=== PATIENT | male | born 1960 | race Caucasian/White ===

== ENCOUNTER 2020-10-21 12:51 | Inpatient (IN) | payer OTHER ==
[~2020-10-21] VITALS: Ht 167.6 cm; Wt 49.4 kg
[2020-10-21] MEDS ORDERED: LORAZEPAM 2MG/ML CPJ IV ONE ×2 (13:15)
[2020-10-21] MEDS ORDERED: VANCOMYCIN 1 G PREMIX 200 ML IV ONE (13:15)
[2020-10-21] MEDS ORDERED: SODIUM CHLORIDE 0.9% 1000ML BAG (SEPSIS BOLUS) IV ONE (13:15)
[2020-10-21] MEDS ORDERED: PIPERACILLIN/TAZ 3.375G PREMIX 50 ML IV ONE (13:15)
[2020-10-21] MEDS ORDERED: LEVOFLOXACIN 750MG PREMIX 150 ML IV ONE (13:15)
[2020-10-21 14:02] LABS: BASOPHILS % 0.2 % (0.0-2.0); HEMATOCRIT. 45.9 % (42.0-52.0); HEMOGLOBIN. 14.9 g/dL (14.0-18.0); LYMPHOCYTES % 10.6 % (20.0-50.0); MEAN CORPUSCULAR HEMOGLOBIN 30.2 pg (28.0-32.0); MONOCYTES % 8.2 % (2.0-8.0); PLATELET 378 x1000/uL (130-400); RED BLOOD CELL COUNT 4.94 mill/uL (4.7-6.1); RED CELL DISTRIBUTION WIDTH 14.6 % (11.6-14.6)
[2020-10-21 14:07] LABS: CHLORIDE 107 mEq/L (98-107)
[2020-10-21 14:14] LABS: ETHANOL BLOOD 21 mg/dL
[2020-10-21] MEDS ORDERED: SODIUM CHLORIDE 0.9% 1,000 ML IV ONE (14:45)
[2020-10-21 15:13] LABS: *AMPHETAMINES SCREEN URINE NEGATIVE (NEGATIVE); *BARBITURATES SCREEN URINE NEGATIVE (NEGATIVE); CANNABINOID URINE SCREEN NEGATIVE (NEGATIVE); METHADONE URINE SCREEN NEGATIVE (NEGATIVE); OPIATES URINE SCREEN NEGATIVE (NEGATIVE); PHENCYCLIDINE URINE SCREEN NEGATIVE (NEGATIVE)
[2020-10-21 15:14] LABS: *BENZODIAZEPINES SCREEN URINE NEGATIVE (NEGATIVE); *COCAINE SCREEN URINE NEGATIVE (NEGATIVE)
[2020-10-21] MEDS ORDERED: MAGNESIUM/ALUMINUM HYDROXIDE/SIMETHICONE 30ML UDC PO PRN (16:00)
[2020-10-21] MEDS ORDERED: POTASSIUM CHLORIDE 20MEQ TABLET SR PO NR (16:00)
[2020-10-21] MEDS ORDERED: ALBUTEROL 6.7GM HFA INHALER ORI PRN (16:00)
[2020-10-21] MEDS ORDERED: NITROGLYCERIN 0.4MG TABLET SL SL PRN (16:00)
[2020-10-21] MEDS ORDERED: NA PHOS,M-B/NA PHOS,DI-BA ENEMA 118ML PR PRN (16:00)
[2020-10-21] MEDS ORDERED: ONDANSETRON HCL 4MG/2ML INJ IV PRN (16:00)
[2020-10-21] MEDS ORDERED: DOCUSATE SODIUM 100MG CAPSULE PO PRN (16:00)
[2020-10-21] MEDS ORDERED: ACETAMINOPHEN 325MG TABLET PO PRN ×2 (16:00)
[2020-10-21] MEDS ORDERED: GUAIFENESIN 200MG/10ML SUGAR FREE UDC PO PRN (16:00)
[2020-10-21] MEDS ORDERED: MVI, ADULT NO.1 10 ML, FOLIC ACID 1 MG, THIAMINE HCL 100 MG in SODIUM CHLORIDE 0.9% 1,0... IV SCH ×4 (17:00)
[2020-10-21] MEDS ORDERED: AZITHROMYCIN 500 MG in DEXT 5% WATER 250 ML IV SCH (17:00)
[2020-10-21] MEDS ORDERED: KCL 20MEQ/100ML PREMIX 100 ML IV SCH (17:00)
[2020-10-21] MEDS ORDERED: ENOXAPARIN 40MG/0.4ML SYR SUBCUT SCH (17:00)
[2020-10-21 17:04] LABS: D-DIMER 0.48 mg/L FEU (<0.50); INR 1.1; PROTHROMBIN TIME 11.8 sec (9.6-11.0)
[2020-10-21] MEDS ORDERED: KCL 10MEQ/50ML PREMIX 50 ML IV ONE (17:15)
[2020-10-21] MEDS ORDERED: CEFTRIAXONE 1 G PREMIX 50 ML IV SCH (18:00)
[2020-10-21] MEDS: FAMOTIDINE 20MG TABLET PO SCH (18:11)
[2020-10-21 19:34] LABS: VITAMIN B12 SERUM 478 pg/mL (211-911)
[2020-10-21] MEDS ORDERED: ALBUTEROL 6.7GM HFA INHALER ORI SCH (21:00)
[2020-10-21] MEDS: GUAIFENESIN/DM 600MG/30MG ER TAB 12HR PO SCH (21:47)
[2020-10-21] MEDS: ASCORBIC ACID 500 MG TABLET PO SCH (21:47)
[2020-10-22 03:54] LABS: FOLIC ACID (FOLATE) SERUM > 20.00 ng/mL (>5.38)
[2020-10-22 05:17] LABS: BASOPHILS % 1.2 % (0.0-2.0); EOSINOPHILS % 0.4 % (0.0-5.0); HEMATOCRIT. 36.5 % (42.0-52.0); HEMOGLOBIN. 12.3 g/dL (14.0-18.0); LYMPHOCYTES % 21.4 % (20.0-50.0); MEAN CORPUSCULAR HEMOGLOBIN 30.8 pg (28.0-32.0); MEAN CORPUSCULAR VOLUME 91.6 fL (80.0-94.0); MEAN PLATELET VOLUME 8.1 fl (7.4-10.4); MONOCYTES % 8.5 % (2.0-8.0); NEUTROPHILS % 68.5 % (40.0-76.0); PLATELET 215 x1000/uL (130-400); RED BLOOD CELL COUNT 3.99 mill/uL (4.7-6.1); RED CELL DISTRIBUTION WIDTH 13.9 % (11.6-14.6)
[2020-10-22 05:27] LABS: CHLORIDE 112 mEq/L (98-107)
[2020-10-22 05:35] LABS: PHOSPHORUS 1.8 mg/dL (2.5-4.9)
[2020-10-22 05:37] LABS: CREATINE KINASE 155 IU/L (39-308)
[2020-10-22 05:44] LABS: CREATINE KINASE MB FRACTION 7.3 ng/mL (0.5-3.6)
[2020-10-22] MEDS: CHOLECALCIFEROL (D3) 1000 UNIT TABLET PO SCH (09:00)
[2020-10-22] MEDS: ASCORBIC ACID 500 MG TABLET PO SCH ×2 (09:00→22:57)
[2020-10-22] MEDS: FAMOTIDINE 20MG TABLET PO SCH (09:00)
[2020-10-22] MEDS: GUAIFENESIN/DM 600MG/30MG ER TAB 12HR PO SCH ×2 (09:00→22:57)
[2020-10-22] MEDS: ZINC SULFATE 220 MG ( 50 ) CAPSULE PO SCH (09:00)
[2020-10-22] MEDS: CLONIDINE 0.1MG TABLET PO PRN (10:03)
[2020-10-22] MEDS: CEFTRIAXONE 1,000 MG in DEXTROSE 5% WATER 50 ML IV SCH (10:33)
[2020-10-22 11:15] VITALS: BP 151/89
[2020-10-22] MEDS ORDERED: DILT180T11 MT (11:40)
[2020-10-22] MEDS ORDERED: LANS15CA12 MT (11:40)
[2020-10-22] MEDS ORDERED: TAMS-11 MT (11:40)
[2020-10-22 12:15] VITALS: BP 151/89
[2020-10-22 16:00] VITALS: BP 156/86
[2020-10-22] MEDS: ENOXAPARIN 30MG/0.3ML SYR SUBCUT SCH (16:18)
[2020-10-22] MEDS ORDERED: AZITHROMYCIN 500 MG in DEXT 5% WATER 250 ML IV SCH (17:00)
[2020-10-22 20:00] VITALS: BP 198/106
[2020-10-22] MEDS: ZOLPIDEM TARTRATE 5MG TABLET PO PRN (23:02)
[2020-10-23] VITALS: BP 168/98
[2020-10-23 04:00] VITALS: BP 174/94
[2020-10-23 08:00] VITALS: BP 140/93
[2020-10-23] MEDS: CLOPIDOGREL 75MG TABLET PO SCH (09:49)
[2020-10-23] MEDS: CEFTRIAXONE 1,000 MG in DEXTROSE 5% WATER 50 ML IV SCH (09:49)
[2020-10-23] MEDS: CHOLECALCIFEROL (D3) 1000 UNIT TABLET PO SCH (09:50)
[2020-10-23] MEDS: ASCORBIC ACID 500 MG TABLET PO SCH ×2 (09:51→20:37)
[2020-10-23] MEDS: FAMOTIDINE 20MG TABLET PO SCH (09:51)
[2020-10-23] MEDS: AMLODIPINE 10MG TABLET PO SCH (09:51)
[2020-10-23] MEDS: ZINC SULFATE 220 MG ( 50 ) CAPSULE PO SCH (09:51)
[2020-10-23] MEDS ORDERED: POTASSIUM PHOS,M-BASIC-D-BASIC 20 MMOL in DEXT 5% WATER 243.3333 ML IV SCH (10:00)
[2020-10-23] MEDS: GUAIFENESIN/DM 600MG/30MG ER TAB 12HR PO SCH ×2 (10:04→20:37)
[2020-10-23 12:00] VITALS: BP 149/93
[2020-10-23 16:00] VITALS: BP 144/92
[2020-10-23] MEDS: ENOXAPARIN 30MG/0.3ML SYR SUBCUT SCH (16:47)
[2020-10-23] MEDS ORDERED: AZITHROMYCIN 500 MG TABLET PO SCH (17:00)
[2020-10-23 20:00] VITALS: BP 178/109
[2020-10-23] MEDS: KETOROLAC 15MG/ML VIAL IV PRN (20:36)
[2020-10-23] MEDS: ZOLPIDEM TARTRATE 5MG TABLET PO PRN (20:37)
[2020-10-23] MEDS: CLONIDINE 0.1MG TABLET PO PRN (21:31)
[2020-10-24] VITALS: BP 118/71
[2020-10-24 04:00] VITALS: BP 142/90
[2020-10-24 08:00] VITALS: BP 125/90
[2020-10-24] MEDS: CEFTRIAXONE 1,000 MG in DEXTROSE 5% WATER 50 ML IV SCH (08:35)
[2020-10-24] MEDS: GUAIFENESIN/DM 600MG/30MG ER TAB 12HR PO SCH (08:35)
[2020-10-24] MEDS: CHOLECALCIFEROL (D3) 1000 UNIT TABLET PO SCH (08:35)
[2020-10-24] MEDS: ASCORBIC ACID 500 MG TABLET PO SCH (08:35)
[2020-10-24] MEDS: FAMOTIDINE 20MG TABLET PO SCH (08:35)
[2020-10-24] MEDS: ZINC SULFATE 220 MG ( 50 ) CAPSULE PO SCH (08:36)
[2020-10-24] MEDS: CLOPIDOGREL 75MG TABLET PO SCH (08:36)
[2020-10-24] MEDS: AMLODIPINE 10MG TABLET PO SCH (08:36)
[2020-10-24] MEDS: KETOROLAC 15MG/ML VIAL IV PRN (08:53)
[2020-10-24 09:04] VITALS: BP 125/90
[2020-10-24 11:15] VITALS: BP 139/95
== END 2020-10-24 12:46 | disposition home or self-care (01) | DRG 52 ==
LOC: ER 13:01 → MICUSO 15:12 → EDBEDREQSVC 16:11 → 6WST 10-22 09:55
PROVIDERS: ADMIT Internal Medicine; ATTEND Internal Medicine
DX: G92 Toxic encephalopathy (principal); J96.91 Respiratory failure, unspecified with hypoxia; Z20.822 Contact with and (suspected) exposure to COVID-19; F17.210 Nicotine dependence, cigarettes, uncomplicated; F19.10 Other psychoactive substance abuse, uncomplicated; R79.89 Other specified abnormal findings of blood chemistry; Z86.73 Personal history of transient ischemic attack (TIA), and cerebral infarction without residual deficits; N17.9 Acute kidney failure, unspecified; E87.6 Hypokalemia; E44.1 Mild protein-calorie malnutrition; Z68.1 Body mass index [BMI] 19.9 or less, adult
CPT/HCPCS: 36415; 70551; 71045; 80053; 80061; 80305; 80320; 82550; 82553; 82607; 82746; 82962; 83036; 83605; 83735; 83880; 84100; 84145; 84484; 85025; 85379; 86850; 86900; 93005; 93970; 99291; J0456; J0696; J1650; J1885; J1956; J2060; J2405; J2543; J3370; J3411; J3480; J3490; J7030; J7060; U0003; G0480